=== PATIENT | female | born 1980 | race Two or more races ===

== ENCOUNTER 2021-05-24 17:28 | Emergency (ER) | payer MEDICAID ==
[~2021-05-24] VITALS: Ht 154.9 cm; Wt 87.1 kg
[2021-05-24 17:40] VITALS: BP 152/101
== END 2021-05-24 18:34 | disposition left against medical advice (07) ==
LOC: ER 17:28
DX: S80.862A Insect bite (nonvenomous), left lower leg, initial encounter (principal); S80.861A Insect bite (nonvenomous), right lower leg, initial encounter; Z53.21 Procedure and treatment not carried out due to patient leaving prior to being seen by health care provider; W57.XXXA Bitten or stung by nonvenomous insect and other nonvenomous arthropods, initial encounter; Y93.89 Activity, other specified; Y92.89 Other specified places as the place of occurrence of the external cause; Y99.8 Other external cause status

== ENCOUNTER 2022-04-13 12:36 | Emergency (ER) | payer MEDICAID ==
[~2022-04-13] VITALS: Ht 154.9 cm; Wt 88.2 kg
[2022-04-13 13:02] VITALS: BP 148/92
== END 2022-04-13 14:10 | disposition home or self-care (01) ==
LOC: ER 12:36
DX: H11.31 Conjunctival hemorrhage, right eye (principal); G89.29 Other chronic pain; M54.50 Low back pain, unspecified

== ENCOUNTER 2022-05-08 23:00 | Emergency (ER) | payer MEDICAID ==
[~2022-05-08] VITALS: Ht 154.9 cm; Wt 86.4 kg
[2022-05-09 02:29] LABS: Basophils # (auto) 0.1 10 ^3/uL (0-0.2); Eosinophils # (auto) 0.3 10 ^3/uL (0-0.8); Lymphocytes # (auto) 2.9 10 ^3/uL (0.4-5.4); Mean Corpuscular Volume 69.4 fL (80.0-100.0); Neutrophils # (auto) 6.5 10 ^3/uL (1.6-8.6); Nucleated Red Blood Cells % 0.1 %
[2022-05-09 02:30] LABS: Basophils % (auto) 0.9 % (0.0-2.0); Hematocrit 32.2 % (36.0-46.0); Hemoglobin 10.3 g/dL (12.2-16.2); Lymphocytes % (auto) 27.5 % (10.0-50.0); Mean Corpuscular Hemoglobin 22.3 pg (28.0-32.0); Mean Corpuscular Hgb Conc. 32.2 g/dL (32.0-36.0); Monocytes # (auto) 0.7 10 ^3/uL (0-1.3); Neutrophils % (auto) 61.6 % (37.0-80.0); Red Blood Cells 4.64 10^6/uL (4.0-5.20); White Blood Cell 10.5 10^3/uL (4.4-10.8)
[2022-05-09 02:32] LABS: Red Cell Distribution Width 20.3 % (11.8-14.3)
[2022-05-09 02:50] LABS: Albumin 3.8 g/dL (3.4-5.0); BUN/Creatinine Ratio 13.8; Calcium 8.7 mg/dL (8.5-10.1); Potassium 3.5 mmol/L (3.5-5.1)
[2022-05-09 02:52] LABS: Bilirubin, Total 0.3 mg/dL (0.2-1.0); Total Protein 7.3 g/dL (6.4-8.2)
[2022-05-09 06:30] VITALS: BP 155/97
== END 2022-05-09 06:40 | disposition home or self-care (01) ==
LOC: ER 23:00
DX: R68.84 Jaw pain (principal); R07.89 Other chest pain
CPT/HCPCS: 36415; 71045; 80053; 84484; 85025